=== PATIENT | male | born 1995 ===

== ENCOUNTER 2018-09-02 13:17 | Emergency (ER) | payer MEDICAID, OTHER ==
[~2018-09-02] VITALS: Ht 170.2 cm; Wt 73.0 kg
[2018-09-02 18:29] VITALS: BP 122/80
== END 2018-09-02 18:31 | disposition home or self-care (01) ==
LOC: ER 13:17
DX: R55 Syncope and collapse (principal); F12.10 Cannabis abuse, uncomplicated
CPT/HCPCS: 71045; 93005; 99283